=== PATIENT | male | born 1980 | race Caucasian/White ===

== ENCOUNTER 2016-12-26 00:21 | Inpatient (IN) | payer SELFPAY ==
[2016-12-26] VITALS (7 sets, daily range): BP systolic 101–166; BP diastolic 59–97; PULSE 65–80; RESP 15–21; TEMP 96.3–98.6; O2SAT 93–99
[~2016-12-26] VITALS: Ht 177.8 cm; Wt 101.1 kg
[~2016-12-26 00:21] MED LIST: METH40TA9 PO
[2016-12-26] MEDS ORDERED: SODIUM CHLOR 0.9% 1000 ML INJ 1,000 ML IV ONE ×2 (02:38→05:30)
[2016-12-26] MEDS ORDERED: SODIUM CHLORIDE 0.9% FLUSH 10 ML FLUSH IVF PRN ×2 (02:45→06:30)
[2016-12-26 03:20] LABS: BACTERIA, URINE RARE /hpf; BLOOD, URINE NEG (NEG); COMMENT (UR) CULT NOT INDICATED; CULTURE IF INDICATED CULT NOT INDICATED; GLUCOSE,URINE NEG (NEG); HYALINE CAST, URINE 2 /lpf (RARE); KETONE, URINE 150 mg/dL (NEG); MUCUS URINE MANY /lpf (OCC); NITRITE,URINE NEG (NEG); SQUAMOUS EPITHELIAL CELL URINE 19 /hpf (0-5); URINE COLOR YELLOW (YELLW/STRAW)
--- NOTE | 2016-12-26 03:45 | RADRPT ---
EXAM DATE/TIME: 12/26/2016 03:18 [place] COMPARISON: No previous studies available for comparison. INDICATIONS : Dark urine. Evaluate kidney obstruction. ORAL CONTRAST: No oral contrast ingested. RADIATION DOSE: 8.54 CTDIvol (mGy) MEDICAL HISTORY : None SURGICAL HISTORY : Inguinal hernia repair. ENCOUNTER: Initial ACUITY: 1 day PAIN SCALE: 0/10 LOCATION: abdomen TECHNIQUE: Volumetric scanning of the abdomen and pelvis was performed. Using automated exposure control and ad justment of the mA and/or kV according to patient size, radiation dose was kept as low as reasonably achievable to obtain optimal diagnostic quality images. DICOM format image data is available electro nically for review and comparison. FINDINGS: LOWER LUNGS: The visualized lower lungs are clear. LIVER: Homogeneous density without lesion. There is no dilation of the biliary tree. No calcified gallston es. SPLEEN: Normal size without lesion. PANCREAS: Within normal limits. KIDNEYS: Normal in size and shape. There is no mass, stone, or hydronephrosis. ADRENAL GLANDS: Within normal limits. VASCULAR: There is no aortic aneurysm. BOWEL/MESENTERY: The stomach, small bowel, and colon demonstrate no acute abnormality. There is no free intraperitone al air or fluid. A moderate amount of stool seen throughout normal caliber colon. ABDOMINAL WALL: Within normal limits. RETROPERITONEUM: There is no lymphadenopathy. BLADDER: No wall thickening or mass. REPRODUCTIVE: Within normal limits. INGUINAL: Prior left angle hernia repair utilizing mesh. No recurrent inguinal hernia seen. MUSCULOSKELETAL: A right hip prosthesis obscures some of the pelvis. CONCLUSION: 1. Constipation. 2. Prior left inguinal hernia repair. Red Lacy Jr., MD on December 26, 2016 at 3:41 Board Certified Radiologist. This report was verified electronically.
[2016-12-26 03:54] LABS: BASOPHIL # 0.1 TH/MM3 (0-0.2); BASOPHIL % 0.6 % (0.0-2.0); EOSINOPHIL # 0.2 TH/MM3 (0-0.4); EOSINOPHIL % 1.6 % (0.0-4.0); HEMATOCRIT 41.7 % (39.0-51.0); HEMO FLAGS DIFF FINAL; LYMPH % 28.9 % (9.0-44.0); LYMPHOCYTE # 2.8 TH/MM3 (1.0-4.8); MEAN CELL VOLUME 83.5 FL (80.0-100.0); MEAN CORPUSCULAR HEMOGLOBIN 28.7 PG (27.0-34.0); MEAN CORPUSCULAR HGB CONC 34.3 % (32.0-36.0); MONO % 6.8 % (0.0-8.0); NEUT % 62.1 % (16.0-70.0); PLATELET COUNT 268 TH/MM3 (150-450); RED BLOOD COUNT 4.99 MIL/MM3 (4.50-5.90); RED CELL DISTRIBUTION WIDTH 13.2 % (11.6-17.2); WHITE BLOOD COUNT 9.6 TH/MM3 (4.0-11.0)
[2016-12-26 04:28] LABS: ALKALINE PHOSPHATASE 90 U/L (45-117); ALT (GPT) 223 U/L (12-78); TOTAL BILIRUBIN ADULT 0.3 MG/DL (0.2-1.0)
[2016-12-26 04:34] LABS: ANION GAP 5 MEQ/L (5-15); AST (GOT) 983 U/L (15-37); BICARBONATE 29.2 MEQ/L (21.0-32.0); BLOOD UREA NITROGEN 14 MG/DL (7-18); CHLORIDE 104 MEQ/L (98-107); GLOMERULAR FILTRATION RATE 81 ML/MIN (>89); POTASSIUM 4.3 MEQ/L (3.5-5.1); SODIUM (NA) 138 MEQ/L (136-145)
[2016-12-26 06:06] LABS: CREATINE KINASE 104270 U/L (39-308)
[2016-12-26 06:09] LABS: CKMB 176.5 NG/ML (0.5-3.6)
[2016-12-26] MEDS ORDERED: SODIUM CHLORIDE 0.9% FLUSH 10 ML FLUSH IV FLUSH PRN (06:15)
[2016-12-26] MEDS ORDERED: NALOXONE HCL 0.4 MG/ML AMP IV PUSH PRN (06:15)
--- NOTE | 2016-12-26 06:27 | PD ---
HPI Chief Complaint: Complaint Time Seen by Provider: 02:38 Travel History International Travel<30 days: No Contact w/Intl Traveler<30days: No Traveled to known affect area: No History of Present Illness HPI 36-year-old male presents to the emergency department by private transportation the care of his friend for evaluation of new onset of noting dark urine. Patient had heavy workout today which is atypical for him as he is typically sedentary. Patient decided to get into shape and aggressively worked out. Patient does not report any muscle pain. Patient's had no abdominal pain. No chest pain no shortness of breath no nausea no vomiting. Patient states he's actually felt poorly since he had hip replacement 3 years ago and does not feel significantly worse that he felt over time. Patient states she's been trying to get disability. Patient does take methadone on a chronic basis. Patient does not take any acetaminophen. Patient's had no heavy use of nonsteroidal anti-inflammatories or aspirin. Patient's had good urine output. Patient has not noticed any gross blood in his urine no dysuria frequency urgency or flank pain. Patient is also not noticed any new bruising or joint pain or swelling. [facility] Past Medical History Narrative Medical Hip surgery 3; prior substance use; methadone use; no alcohol use; nursing notes reviewed Diminished Hearing: No Musculoskeletal: Yes (STAPH INFECTION TO RIGHT HIP AREA) Sleep Apnea: No Past Surgical History Abdominal Surgery: Yes (HERNIA REPAIR) Neurologic Surgery: No Other Surgery: Yes (RIGHT HIP REPLACEMENT 08/2014) Social History Alcohol Use: No (PT DENIES AT THIS TIME) Tobacco Use: Yes (VAPOR CIGS) Substance Use: Yes (PT DENIES AT THIS TIME. (Herion IV USE LAST USED 12/24/2004) ) Allergies-Medications (Allergen,Severity, Reaction): Coded Allergies: No Known Allergies (Verified , 12/26/16) Reported Meds & Prescriptions Reported Meds & Active Scripts Active Reported Methadone Hcl (Methadone HCl) 40 Mg Tab 110 Mg PO DAILY Review of Systems Except as stated in HPI: all other systems reviewed are Neg General / Constitutional: No: Fever, Chills Eyes: No: Visual changes HENT: No: Headaches, Neck Pain Cardiovascular: No: Chest Pain or Discomfort, Palpitations, Diaphoresis Respiratory: No: Shortness of Breath Gastrointestinal: No: Nausea, Vomiting, Abdominal Pain Genitourinary: Positive: Hematuria (Dark Urine), No: Dysuria, Flank Pain Musculoskeletal: No: Myalgias, Arthralgias, Cramping, Edema, Pain Skin: No Rash Neurologic: No: Weakness Psychiatric: No: Anxiety Hematologic/Lymphatic: No: Lymph Node Enlargement Physical Exam Narrative GENERAL: Well-developed well-nourished male in no acute distress no respiratory distress SKIN: Warm and dry. HEAD: Normocephalic. EYES: No scleral icterus. No injection or drainage. NECK: Supple, trachea midline. No JVD or lymphadenopathy. CARDIOVASCULAR: Regular rate and rhythm without murmurs, gallops, or rubs. RESPIRATORY: Breath sounds equal bilaterally. No accessory muscle use. GASTROINTESTINAL: Abdomen soft, non-tender, nondistended. MUSCULOSKELETAL: No cyanosis, or edema. BACK: Nontender without obvious deformity. No CVA tenderness. Data Data Last Documented VS Vital Signs Date Time Temp Pulse Resp B/P (MAP) Pulse Ox O2 Delivery O2 Flow Rate FiO2 12/26/16 00:22 98.3 80 15 166/97 (120) 98 Room Air Orders Orders Complete Blood Count With Diff (12/26/16 02:38) Comprehensive Metabolic Panel (12/26/16 02:38) Urinalysis - C+S If Indicated (12/26/16 02:38) Ct Abd/Pel W/O Iv Contrast (12/26/16 02:38) Ecg Monitoring (12/26/16 02:38) Iv Access Insert/Monitor (12/26/16 02:38) Sodium Chloride 0.9% Flush (Ns Flush) (12/26/16 02:45) Sodium Chlor 0.9% 1000 Ml Inj (Ns 1000 M (12/26/16 02:38) Creatine Kinase (Cpk) (12/26/16 03:38) Lipase (12/26/16 05:14) Hepatitis Profile (12/26/16 05:14) Sodium Chlor 0.9% 1000 Ml Inj (Ns 1000 M (12/26/16 05:30) CKMB (12/26/16 03:38) CKMB% (12/26/16 03:38) Admit To Inpatient (12/26/16 ) Vital Signs (Adult) Q4H (12/26/16 06:14) Activity Oob With Assistance (12/26/16 06:14) [employer] Blind Mechanic / Telemetry .CONTINUOUS (12/26/16 06:14) Diet Heart Healthy (12/26/16 Breakfast) Sodium Chlor 0.9% 1000 Ml Inj (Ns 1000 M (12/26/16 06:14) Sodium Chloride 0.9% Flush (Ns Flush) (12/26/16 06:15) Sodium Chloride 0.9% Flush (Ns Flush) (12/26/16 09:00) Basic Metabolic Panel (Bmp) (12/27/16 06:00) Complete Blood Count With Diff (12/27/16 06:00) Case Management Consult (12/26/16 06:14) Naloxone Inj (Narcan Inj) (12/26/16 06:15) Inpatient Certification (12/26/16 ) Electrocardiogram (12/26/16 ) Creatine Kinase (Cpk) (12/26/16 06:17) Troponin I (12/26/16 06:17) Admit Order (Ed Use Only) (12/26/16 ) ^ Saline Lock (12/26/16 06:18) Resp Oxygen Ulysses C Titrat 1-4 L (12/26/16 ) Notify Dr: Other (12/26/16 06:18) Sodium Chloride 0.9% Flush (Ns Flush) (12/26/16 09:00) Sodium Chloride 0.9% Flush (Ns Flush) (12/26/16 06:30) Labs Laboratory Tests Test 12/26/16 03:14 12/26/16 03:38 12/26/16 05:35 Urine Color YELLOW Urine Turbidity HAZY Urine pH 7.0 Urine Specific [place] 1.037 Urine Protein 100 mg/dL Urine Glucose (UA) NEG mg/dL Urine Ketones 150 mg/dL Urine Occult Blood NEG Urine Nitrite NEG Urine Bilirubin NEG Urine Urobilinogen 2.0 MG/DL Urine Leukocyte Esterase TRACE Urine RBC 2 /hpf Urine WBC 5 /hpf Urine Squamous Epithelial Cells 19 /hpf Urine Bacteria RARE /hpf Urine Hyaline Casts 2 /lpf Urine Mucus MANY /lpf Microscopic Urinalysis Comment CULT NOT INDICATED White Blood Count 9.6 TH/MM3 Red Blood Count 4.99 MIL/MM3 Hemoglobin 14.3 GM/DL Hematocrit 41.7 % Mean Corpuscular Volume 83.5 FL Mean Corpuscular Hemoglobin 28.7 PG Mean Corpuscular Hemoglobin Concent 34.3 % Red Cell Distribution Width 13.2 % Platelet Count 268 TH/MM3 Mean Platelet Volume 8.4 FL Neutrophils (%) (Auto) 62.1 % Lymphocytes (%) (Auto) 28.9 % Monocytes (%) (Auto) 6.8 % Eosinophils (%) (Auto) 1.6 % Basophils (%) (Auto) 0.6 % Neutrophils # (Auto) 6.0 TH/MM3 Lymphocytes # (Auto) 2.8 TH/MM3 Monocytes # (Auto) 0.7 TH/MM3 Eosinophils # (Auto) 0.2 TH/MM3 Basophils # (Auto) 0.1 TH/MM3 CBC Comment DIFF FINAL Differential Comment Blood Urea Nitrogen 14 MG/DL Creatinine 1.05 MG/DL Random Glucose 111 MG/DL Total Protein 7.2 GM/DL Albumin 3.7 GM/DL Calcium Level 8.7 MG/DL Alkaline Phosphatase 90 U/L Aspartate Amino Transf (AST/SGOT) 983 U/L Alanine Aminotransferase (ALT/SGPT) 223 U/L Total Bilirubin 0.3 MG/DL Sodium Level 138 MEQ/L Potassium Level 4.3 MEQ/L Chloride Level 104 MEQ/L Carbon Dioxide Level 29.2 MEQ/L Anion Gap 5 MEQ/L Estimat Glomerular Filtration Rate 81 ML/MIN Total Creatine Kinase 414030 U/L Creatine Kinase MB 176.5 NG/ML Creatine Kinase MB % 0.2 % Lipase 71 U/L [facility] Medical Decision Making Medical Screen Exam Complete: Yes Emergency Medical Condition: Yes Medical Record Reviewed: Yes Interpretation(s) CBC & BMP Diagram 12/26/16 03:38 Total Protein 7.2, Albumin 3.7, Calcium Level 8.7, Alkaline Phosphatase 90, Aspartate Amino Transf (AST/SGOT) 983 H, Alanine Aminotransferase (ALT/SGPT) 223 H, Total Bilirubin 0.3 Vital Signs Date Time Temp Pulse Resp B/P (MAP) Pulse Ox O2 Delivery O2 Flow Rate FiO2 12/26/16 00:22 98.3 80 15 166/97 (120) 98 Room Air CK: 104,270, elevated MB% 0.2%, not elevated EKG normal sinus rhythm rate [address] segment elevation injury pattern or ectopy noted Differential Diagnosis Dark urine/hematuria, UTI, renal colic, rhabdomyolysis, renal failure, hepatitis , electrolyte disturbance, dehydration Narrative Course IV access obtained specimens collected and sent for resulting patient administered 1 L normal saline CBC is automated differential values normal range Urinalysis elevated specific gravity 1.037 however no red blood cells no occult blood also no urobilinogen CT abdomen and pelvis with contrast reveals no acute abnormality Metabolic panel renal function is normal BUN and creatinine are normal range however transaminase anemia is noted with elevated AST and ALT CK remains pending Patient given additional liter of normal saline waiting for CK results; lab has been called and has been informed that CK is requiring dilution At 6:20 AM CK total is from a resulted as 104, 270 this is markedly elevated with elevated CK-MB but MB percent is 0.2% not elevated Patient's case has been discussed with on-call [place] for admission for rhabdomyolysis as well as transaminasemia EKG ordered, repeat CK ordered, troponin I ordered. Patient is informed that he will be admitted for ongoing evaluation of pending CK and liver function tests. Physician Communication Physician Communication discussed with Dr Leonardo --admit Diagnosis Primary Impression: Rhabdomyolysis Additional Impression: Transaminasemia Admitting Information Admitting Physician Requests: Admit Selma Bell MD Dec 26, 2016 06:26
[2016-12-26] MEDS ORDERED: METH40TA PO (06:57)
[2016-12-26] MEDS: SODIUM CHLOR 0.9% 1000 ML INJ 1,000 ML IV SCH ×5 (07:14→22:14)
[2016-12-26 08:36] LABS: CKMB 118.8 NG/ML (0.5-3.6)
[2016-12-26] MEDS: SODIUM CHLORIDE 0.9% FLUSH 10 ML FLUSH IV FLUSH SCH ×2 (09:00→21:19)
[2016-12-26] MEDS ORDERED: SODIUM CHLORIDE 0.9% FLUSH 10 ML FLUSH IV FLUSH SCH (09:00)
--- NOTE | 2016-12-26 11:09 | HHI.HP ---
HPI Service [facility] Primary Care Physician No Primary Care Physician Admission Diagnosis rhabdomyolysis; transaminasemia Diagnoses: Chief Complaint: Brown urine Travel History International Travel<30 Days: No Contact w/Intl Traveler <30 Da: No Traveled to Known Affected Are: No History of Present Illness The patient is a 36-year-old male who is methadone dependent who is presenting to the hospital with brown urine. The patient says that yesterday he and his brother decided to come back to the gym. He said he has not been working out for the past 3 months. He says he performs some stretches and mostly chest exercises. He said that at one point his left arm felt like he ripped a muscle but he continued to work out despite that. He said that he felt worn out from overexerting himself. He said that once he got home he didn't feel right. He said he had a bowel movement and then started to feel really cold. He then started to feel hot. He said he had diffuse muscle aches so he took an ibuprofen 800 mg. He said that before he went to bed he went to urinate and noticed that his urine was brown in color. He decided to come to the hospital for further evaluation at that point. He denied any pain upon urination. He denied any fevers. He says he did take of the now approaching shake the day prior to working out. He also mentions that he has been taking testosterone supplements in the form of "[place] Test" and "DIM". He says as he is chronically on methadone his testosterone level is very low and he has been taking supplements for the past few months. He also says that he endorses exertional headaches. He stopped going to the gym 3 months ago because of those exertion headaches. He said that he is chronically constipated and has been straining a lot. He said he was straining on the day he came to the hospital. Review of Systems Except as stated in HPI: all other systems reviewed are Neg Past Family Social History Past Medical History Right hip staph infection secondary to an ingrown toenail requiring hip replacement Allergies: Coded Allergies: No Known Allergies (Verified , 12/26/16) Active Ordered Medications Current Medications Medications (Trade) Dose Ordered Sig/Telly Route Start Time Stop Time Status Last Admin Sodium Chloride 1,000 ml @ 250 mls/hr Q4H IV 12/26/16 06:14 12/26/16 07:14 (NS Flush) 2 ml UNSCH PRN IV FLUSH 12/26/16 06:15 (NS Flush) 2 ml BID IV FLUSH 12/26/16 09:00 (Narcan Inj) 0.4 mg UNSCH PRN IV PUSH 12/26/16 06:15 (Dolophine) 120 mg DAILY PO 12/26/16 10:45 UNV Family History CAD Social History The patient is chronically on methadone at the methadone clinic. He denies smoking or drinking or illicit drug use. Physical Exam Vital Signs Vital Signs Date Time Temp Pulse Resp B/P (MAP) Pulse Ox O2 Delivery O2 Flow Rate FiO2 12/26/16 07:57 97.8 71 16 136/71 (92) 98 12/26/16 06:55 71 16 119/77 (91) 99 Room Air 12/26/16 06:32 98 12/26/16 00:22 98.3 80 15 166/97 (120) 98 Room Air Physical Exam GENERAL: This is a well-nourished, well-developed patient, in no apparent distress. SKIN: No rashes, ecchymoses or lesions. Cool and dry. HEAD: Atraumatic. Normocephalic. No temporal or scalp tenderness. EYES: Pupils equal round and reactive. Extraocular motions intact. No scleral icterus. No injection or drainage. ENT: Nose without bleeding, purulent drainage or septal hematoma. Throat without erythema, tonsillar hypertrophy or exudate. Uvula midline. Airway patent. NECK: Trachea midline. No JVD or lymphadenopathy. Supple, nontender, no meningeal signs. CARDIOVASCULAR: Regular rate and rhythm without murmurs, gallops, or rubs. RESPIRATORY: Clear to auscultation. Breath sounds equal bilaterally. No wheezes , rales, or rhonchi. GASTROINTESTINAL: Abdomen soft, non-tender, nondistended. No hepato-splenomegaly , or palpable masses. No guarding. MUSCULOSKELETAL: Extremities without clubbing, cyanosis, or edema. No joint tenderness, effusion, or edema noted. NEUROLOGICAL: Awake and alert. Cranial nerves II through XII intact. Motor and sensory grossly within normal limits. Five out of 5 muscle strength in all muscle groups. Normal speech. PSYCH: Mood and affect appropriate. Laboratory Laboratory Tests Test 12/26/16 03:14 12/26/16 03:38 12/26/16 05:35 12/26/16 06:20 Urine Color YELLOW Urine Turbidity HAZY Urine pH 7.0 Urine Specific [place] 1.037 Urine Protein 100 Urine Glucose (UA) NEG Urine Ketones 150 Urine Occult Blood NEG Urine Nitrite NEG Urine Bilirubin NEG Urine Urobilinogen 2.0 Urine Leukocyte Esterase TRACE Urine RBC 2 Urine WBC 5 Urine Squamous Epithelial Cells 19 Urine Bacteria RARE Urine Hyaline Casts 2 Urine Mucus MANY Microscopic Urinalysis Comment CULT NOT INDICATED White Blood Count 9.6 Red Blood Count 4.99 Hemoglobin 14.3 Hematocrit 41.7 Mean Corpuscular Volume 83.5 Mean Corpuscular Hemoglobin 28.7 Mean Corpuscular Hemoglobin Concent 34.3 Red Cell Distribution Width 13.2 Platelet Count 268 Mean Platelet Volume 8.4 Neutrophils (%) (Auto) 62.1 Lymphocytes (%) (Auto) 28.9 Monocytes (%) (Auto) 6.8 Eosinophils (%) (Auto) 1.6 Basophils (%) (Auto) 0.6 Neutrophils # (Auto) 6.0 Lymphocytes # (Auto) 2.8 Monocytes # (Auto) 0.7 Eosinophils # (Auto) 0.2 Basophils # (Auto) 0.1 CBC Comment DIFF FINAL Differential Comment Blood Urea Nitrogen 14 Creatinine 1.05 Random Glucose 111 Total Protein 7.2 Albumin 3.7 Calcium Level 8.7 Alkaline Phosphatase 90 Aspartate Amino Transf (AST/SGOT) 983 Alanine Aminotransferase (ALT/SGPT) 223 Total Bilirubin 0.3 Sodium Level 138 Potassium Level 4.3 Chloride Level 104 Carbon Dioxide Level 29.2 Anion Gap 5 Estimat Glomerular Filtration Rate 81 Total Creatine Kinase [id number] Creatine Kinase MB 176.5 118.8 Creatine Kinase MB % 0.2 0.1 Lipase 71 Troponin I 0.02 Result Diagram: 12/26/1633712/26/16337 Imaging Last Impressions Abdomen/Pelvis CT 12/26/16237 Signed Impressions: Service Date/Time: December 03:18 - CONCLUSION: 1. Constipation. 2. Prior left inguinal hernia repair. MD Jacob Eastman Jr. VTE Risk Assessment Caprini VTE Risk Assessment: No/Low Risk (score <= 1) Caprini Risk Assessment Model Point Value = 1 Point Value = 2 Point Value = 3 Point Value = 5 Age 41-60 Minor surgery BMI > 25 kg/m2 Swollen legs Varicose veins or History of unexplained or recurrent spontaneous Oral contraceptives or hormone replacement Sepsis (< 1 month) Serious lung disease, including pneumonia (< 1 month) Abnormal pulmonary function Acute myocardial infarction Congestive heart failure (< 1 month) History of inflammatory bowel disease Medical patient at bed rest Age 61-74 Arthroscopic surgery Major open surgery (> 45 min) Laparoscopic surgery (> 45 min) Malignancy Confined to bed (> 72 hours) Immobilizing plaster cast Central venous access Age >= 75 History of VTE Family history of VTE Factor V Leiden Prothrombin [id number] Lupus anticoagulant Anticardiolipin antibodies Elevated serum homocysteine Heparin-induced thrombocytopenia Other congenital or acquired thrombophilia Stroke (< 1 month) Elective arthroplasty Hip, pelvis, or leg fracture Acute spinal cord injury (< 1 month) Prophylaxis Regimen Total Risk Factor Score Risk Level Prophylaxis Regimen 0-1 Low Early ambulation 2 Moderate Order ONE of the following: *Sequential Compression Device (SCD) *Heparin 5000 units SQ BID 3-4 Higher Order ONE of the following medications: *Heparin 5000 units SQ TID *Enoxaparin/Lovenox 40 mg SQ daily (WT < 150 kg, CrCl > 30 mL/min) *Enoxaparin/Lovenox 30 mg SQ daily (WT < 150 kg, CrCl > 10-29 mL/min) *Enoxaparin/Lovenox 30 mg SQ BID (WT < 150 kg, CrCl > 30 mL/min) AND/OR *Sequential Compression Device (SCD) 5 or more Highest Order ONE of the following medications: *Heparin 5000 units SQ TID (Preferred with Epidurals) *Enoxaparin/Lovenox 40 mg SQ daily (WT < 150 kg, CrCl > 30 mL/min) *Enoxaparin/Lovenox 30 mg SQ daily (WT < 150 kg, CrCl > 10-29 mL/min) *Enoxaparin/Lovenox 30 mg SQ BID (WT < 150 kg, CrCl > 30 mL/min) AND *Sequential Compression Device (SCD) Assessment and Plan Assessment and Plan Rhabdomyolysis CPK level was significantly elevated at over 104,000. The patient did overexert himself at the gym on the day of admission. He has also been taking testosterone supplements and protein shakes. He was started on aggressive IV fluid hydration. - Continue normal saline at 250 ml/hour. - Follow CPK level. - Monitor electrolytes and renal function. Acute hepatitis Possibly secondary to rhabdo. The patient denies any history of hepatitis. CT of the abdomen unremarkable for hepatic process. - Trend LFTs. - IV fluids. - Check hepatitis profile. - liver US if no improvement. Chronic methadone use The patient goes to the methadone clinic on a daily basis for chronic pain. - Continue methadone regimen. PPx: Ambulation Code Status Full Discussed Condition With Pt, nurse Physician Certification 2 Midnight Certification Type: Admission for Inpatient Services Order for Inpatient Services The services are ordered in accordance with Medicare regulations or non- Medicare payer requirements, as applicable. In the case of services not specified as inpatient-only, they are appropriately provided as inpatient services in accordance with the 2-midnight benchmark. Estimated LOS (days): 2 days is the estimated time the patient will need to remain in the hospital, assuming treatment plan goals are met and no additional complications. Post-Hospital Plan: Home Jose Luis Crocker DO Dec 26, 2016 10:46
[2016-12-26] MEDS ORDERED: POLYETHYLENE GLYCOL 17 GM PKG PO ONE (11:30)
[2016-12-26] MEDS: DOCUSATE SODIUM 100 MG CAP PO SCH ×2 (11:52→21:19)
[2016-12-26] MEDS: METHADONE HCL 10 MG TAB PO SCH (11:54)
[2016-12-26] MEDS: SENNOSIDES 8.6 MG TAB PO SCH (16:16)
--- NOTE | 2016-12-26 17:08 | EKG ---
Date Performed: 12/26/2016 Time Performed: 06:46:22 PTAGE: 36 years EKG: Sinus rhythm NON-SPECIFIC ST/T WAVE CHANGES PREVIOUS TRACING : 12/13/2016 11.31 Compared to prior tracing no significant change DOCTOR: Jalen Trent Interpretating Date/Time 12/26/2016 17:06:55
[2016-12-27] VITALS (7 sets, daily range): BP systolic 114–138; BP diastolic 73–83; PULSE 59–85; RESP 16–18; TEMP 96.3–97.8; O2SAT 93–100
[2016-12-27] MEDS: SODIUM CHLOR 0.9% 1000 ML INJ 1,000 ML IV SCH ×6 (01:48→22:14)
[2016-12-27 07:17] LABS: BICARBONATE 27.6 MEQ/L (21.0-32.0); POTASSIUM 4.2 MEQ/L (3.5-5.1)
[2016-12-27] MEDS: METHADONE HCL 10 MG TAB PO SCH (08:24)
[2016-12-27] MEDS: DOCUSATE SODIUM 100 MG CAP PO SCH ×2 (08:24→20:15)
[2016-12-27] MEDS: SENNOSIDES 8.6 MG TAB PO SCH (08:24)
[2016-12-27 08:25] LABS: INDIRECT BILIRUBIN 0.3 MG/DL (0.0-0.8); TOTAL BILIRUBIN ADULT 0.4 MG/DL (0.2-1.0)
[2016-12-27] MEDS: SODIUM CHLORIDE 0.9% FLUSH 10 ML FLUSH IV FLUSH SCH ×2 (08:32→20:15)
[2016-12-27 08:49] LABS: CKMB 37.6 NG/ML (0.5-3.6)
--- NOTE | 2016-12-27 11:19 | HHI.PR ---
Subjective Remarks The patient said that he had a headache earlier that is now improved. He said it felt like a migraine. His family was at the bedside. Their questions were answered. The patient wanted his telemetry off. He says the stool softeners have been working. He had no other acute complaints. Discussed with nursing. Objective Vitals Vital Signs Date Time Temp Pulse Resp B/P (MAP) Pulse Ox O2 Delivery O2 Flow Rate FiO2 12/27/16 07:11 97.8 79 16 138/82 (100) 99 12/27/16 04:41 97.6 79 17 130/73 (92) 97 12/27/16 00:55 96.3 85 18 132/83 (99) 100 12/26/16 19:45 96.3 79 21 120/79 (93) 97 12/26/16 16:00 98.6 65 18 101/59 (73) 93 I/O 12/26/16 12/26/16 12/26/16 12/27/16 12/27/16 12/27/16 07:00 15:00 23:00 07:00 15:00 23:00 Intake Total 480 ml 480 ml 1829 ml 1349 ml Output Total 400 ml Balance 80 ml 480 ml 1829 ml 1349 ml Intake Oral 480 ml 480 ml 480 ml IV Total 1349 ml 1349 ml Output Urine Total 400 ml # Voids 2 3 # Bowel Movements 0 0 Result Diagram: 12/26/16 0338 12/27/16 0613 Imaging Last Impressions Abdomen/Pelvis CT 12/26/16 0238 Signed Impressions: Service Date/Time: December 03:18 - CONCLUSION: 1. Constipation. 2. Prior left inguinal hernia repair. Red Lacy Jr., MD Objective Remarks GENERAL: This is a well-nourished, well-developed patient, in no apparent distress. SKIN: No rashes, ecchymoses or lesions. Cool and dry. HEAD: Atraumatic. Normocephalic. No temporal or scalp tenderness. EYES: Pupils equal round and reactive. Extraocular motions intact. No scleral icterus. No injection or drainage. ENT: Nose without bleeding, purulent drainage or septal hematoma. Throat without erythema, tonsillar hypertrophy or exudate. Uvula midline. Airway patent. NECK: Trachea midline. No JVD or lymphadenopathy. Supple, nontender, no meningeal signs. CARDIOVASCULAR: Regular rate and rhythm without murmurs, gallops, or rubs. RESPIRATORY: Clear to auscultation. Breath sounds equal bilaterally. No wheezes , rales, or rhonchi. GASTROINTESTINAL: Abdomen soft, non-tender, nondistended. No hepato-splenomegaly , or palpable masses. No guarding. MUSCULOSKELETAL: Extremities without clubbing, cyanosis, or edema. No joint tenderness, effusion, or edema noted. NEUROLOGICAL: Awake and alert. Cranial nerves II through XII intact. Motor and sensory grossly within normal limits. Five out of 5 muscle strength in all muscle groups. Normal speech. PSYCH: Mood and affect appropriate. Medications and IVs Current Medications Medications (Trade) Dose Ordered Sig/Telly Route Start Time Stop Time Status Last Admin Sodium Chloride 1,000 ml @ 250 mls/hr Q4H IV 12/26/16 06:14 12/27/16 08:28 (NS Flush) 2 ml UNSCH PRN IV FLUSH 12/26/16 06:15 (NS Flush) 2 ml BID IV FLUSH 12/26/16 09:00 12/26/16 21:19 (Narcan Inj) 0.4 mg UNSCH PRN IV PUSH 12/26/16 06:15 (Dolophine) 120 mg DAILY PO 12/26/16 12:00 12/27/16 08:24 (Colace) 100 mg BID PO 12/26/16 10:45 12/27/16 08:24 (Senokot) 17.2 mg DAILY PO 12/26/16 12:00 12/27/16 08:24 A/P Assessment and Plan Rhabdomyolysis CPK level was significantly elevated at over 104,000. The patient did overexert himself at the gym on the day of admission. He has also been taking testosterone supplements and protein shakes. He was started on aggressive IV fluid hydration. CPK continues to improve. - Continue normal saline at 250 ml/hour. - Follow CPK level. - Monitor electrolytes and renal function. Acute hepatitis Likely secondary to rhabdo. The patient denies any history of hepatitis. CT of the abdomen unremarkable for hepatic process. - Trend LFTs. Improving. - IV fluids. - Check hepatitis profile. Chronic methadone use The patient goes to the methadone clinic on a daily basis for chronic pain. - Continue methadone regimen. PPx: Ambulation Discharge Planning Awaiting improvement in rhabdomyolysis Jose Luis Crocker DO Dec 27, 2016 11:19
[2016-12-27] MEDS ORDERED: IBUPROFEN 800 MG TAB PO ONE (12:30)
[2016-12-28] VITALS (7 sets, daily range): BP systolic 122–139; BP diastolic 73–82; PULSE 58–72; RESP 17–18; TEMP 95.7–97.4; O2SAT 94–99
[2016-12-28] MEDS: SODIUM CHLOR 0.9% 1000 ML INJ 1,000 ML IV SCH ×6 (02:14→22:44)
[2016-12-28 05:06] LABS: ALT (GPT) 207 U/L (12-78); ANION GAP 5 MEQ/L (5-15); AST (GOT) 519 U/L (15-37); BICARBONATE 30.5 MEQ/L (21.0-32.0); BLOOD UREA NITROGEN 9 MG/DL (7-18); CHLORIDE 108 MEQ/L (98-107); GLOMERULAR FILTRATION RATE 91 ML/MIN (>89); POTASSIUM 4.5 MEQ/L (3.5-5.1); SODIUM (NA) 143 MEQ/L (136-145)
[2016-12-28 05:31] LABS: ALKALINE PHOSPHATASE 79 U/L (45-117); TOTAL BILIRUBIN ADULT 0.3 MG/DL (0.2-1.0)
[2016-12-28 05:52] LABS: CREATINE KINASE 40828 U/L (39-308)
[2016-12-28 06:09] LABS: CKMB 26.7 NG/ML (0.5-3.6)
[2016-12-28] MEDS: SENNOSIDES 8.6 MG TAB PO SCH (08:06)
[2016-12-28] MEDS: METHADONE HCL 10 MG TAB PO SCH (08:06)
[2016-12-28] MEDS: DOCUSATE SODIUM 100 MG CAP PO SCH ×2 (08:06→21:27)
[2016-12-28] MEDS: IBUPROFEN 600 MG TAB PO PRN ×2 (08:07→21:28)
[2016-12-28] MEDS: SODIUM CHLORIDE 0.9% FLUSH 10 ML FLUSH IV FLUSH SCH ×2 (09:00→21:00)
--- NOTE | 2016-12-28 14:25 | HHI.PR ---
Subjective Remarks The patient said that his headache has resolved. He has been ambulating. He has no acute complaints. He does mention that he has some aches and pains on his left mid back. Objective Vitals Vital Signs Date Time Temp Pulse Resp B/P (MAP) Pulse Ox O2 Delivery O2 Flow Rate FiO2 12/28/16 12:00 95.7 69 18 122/77 (92) 94 12/28/16 08:00 97.4 58 17 127/82 (97) 95 12/28/16 04:00 96.9 61 18 125/74 (91) 97 12/28/16 00:00 97.4 64 18 132/78 (96) 99 12/27/16 20:00 97.3 70 16 114/76 (89) 98 12/27/16 16:00 97.8 59 16 136/79 (98) 99 I/O 12/27/16 12/27/16 12/27/16 12/28/16 12/28/16 12/28/16 07:00 15:00 23:00 07:00 15:00 23:00 Intake Total 1829 ml 3209 ml 2520 ml 120 ml Balance 1829 ml 3209 ml 2520 ml 120 ml Intake Oral 480 ml 960 ml 720 ml 120 ml IV Total 1349 ml 2249 ml 1800 ml # Voids 3 4 2 1 # Bowel Movements 0 1 0 Result Diagram: 12/26/16 0338 12/28/16 0350 Imaging Last Impressions Abdomen/Pelvis CT 12/26/16 0238 Signed Impressions: Service Date/Time: December 03:18 - CONCLUSION: 1. Constipation. 2. Prior left inguinal hernia repair. Red Lacy Jr., MD Objective Remarks GENERAL: This is a well-nourished, well-developed patient, in no apparent distress. SKIN: No rashes, ecchymoses or lesions. Cool and dry. HEAD: Atraumatic. Normocephalic. No temporal or scalp tenderness. EYES: Pupils equal round and reactive. Extraocular motions intact. No scleral icterus. No injection or drainage. ENT: Nose without bleeding, purulent drainage or septal hematoma. Throat without erythema, tonsillar hypertrophy or exudate. Uvula midline. Airway patent. NECK: Trachea midline. No JVD or lymphadenopathy. Supple, nontender, no meningeal signs. CARDIOVASCULAR: Regular rate and rhythm without murmurs, gallops, or rubs. RESPIRATORY: Clear to auscultation. Breath sounds equal bilaterally. No wheezes , rales, or rhonchi. GASTROINTESTINAL: Abdomen soft, non-tender, nondistended. No hepato-splenomegaly , or palpable masses. No guarding. MUSCULOSKELETAL: Extremities without clubbing, cyanosis, or edema. No joint tenderness, effusion, or edema noted. NEUROLOGICAL: Awake and alert. Cranial nerves II through XII intact. Motor and sensory grossly within normal limits. Five out of 5 muscle strength in all muscle groups. Normal speech. PSYCH: Mood and affect appropriate. Medications and IVs Current Medications Medications (Trade) Dose Ordered Sig/Telly Route Start Time Stop Time Status Last Admin Sodium Chloride 1,000 ml @ 250 mls/hr Q4H IV 12/26/16 06:14 12/28/16 06:41 (NS Flush) 2 ml UNSCH PRN IV FLUSH 12/26/16 06:15 (NS Flush) 2 ml BID IV FLUSH 12/26/16 09:00 12/27/16 20:15 (Narcan Inj) 0.4 mg UNSCH PRN IV PUSH 12/26/16 06:15 (Dolophine) 120 mg DAILY PO 12/26/16 12:00 12/28/16 08:06 (Colace) 100 mg BID PO 12/26/16 10:45 12/28/16 08:06 (Senokot) 17.2 mg DAILY PO 12/26/16 12:00 12/28/16 08:06 (Motrin) 600 mg Q8H PRN PO 12/27/16 20:00 12/28/16 08:07 A/P Assessment and Plan Rhabdomyolysis CPK level was significantly elevated at over 104,000. The patient did overexert himself at the gym on the day of admission. He has also been taking testosterone supplements and protein shakes. He was started on aggressive IV fluid hydration. CPK continues to improve. - Continue normal saline at 250 ml/hour. - Follow CPK level. - Monitor electrolytes and renal function. Acute hepatitis Likely secondary to rhabdo. The patient denies any history of hepatitis. CT of the abdomen unremarkable for hepatic process. Hepatitis profile negative. - Trend LFTs. Stable. - IV fluids. Chronic methadone use The patient goes to the methadone clinic on a daily basis for chronic pain. - Continue methadone regimen. PPx: Ambulation Discharge Planning Awaiting improvement in rhabdomyolysis Jose Luis Crocker DO Dec 28, 2016 14:25
[2016-12-29] VITALS (10 sets, daily range): BP systolic 122–150; BP diastolic 73–90; PULSE 58–71; RESP 16–18; TEMP 95.7–98; O2SAT 93–99
[2016-12-29] MEDS: SODIUM CHLOR 0.9% 1000 ML INJ 1,000 ML IV SCH ×6 (02:14→22:18)
[2016-12-29 07:20] LABS: INTERNATIONAL NORMALIZED RATIO 0.9 RATIO; PROTHROMBIN TIME - PATIENT 10.4 SEC (9.8-11.6)
[2016-12-29 07:37] LABS: INDIRECT BILIRUBIN 0.2 MG/DL (0.0-0.8); TOTAL BILIRUBIN ADULT 0.3 MG/DL (0.2-1.0)
[2016-12-29] MEDS: METHADONE HCL 10 MG TAB PO SCH (08:55)
[2016-12-29] MEDS: DOCUSATE SODIUM 100 MG CAP PO SCH ×2 (08:55→22:18)
[2016-12-29] MEDS: SENNOSIDES 8.6 MG TAB PO SCH (08:56)
[2016-12-29] MEDS: SODIUM CHLORIDE 0.9% FLUSH 10 ML FLUSH IV FLUSH SCH ×2 (08:57→22:16)
[2016-12-29 09:52] LABS: CKMB 12.1 NG/ML (0.5-3.6)
--- NOTE | 2016-12-29 10:28 | HHI.PR ---
Subjective Remarks The patient said that he does not have any aches or pains today. He was looking forward to going home soon. He is tolerating a diet. He is having bowel movements. Discussed with nursing. Objective Vitals Vital Signs Date Time Temp Pulse Resp B/P (MAP) Pulse Ox O2 Delivery O2 Flow Rate FiO2 12/29/16 08:00 97.3 58 16 150/90 (110) 94 12/29/16 04:24 96.9 60 18 139/78 (98) 96 12/29/16 04:01 66 12/29/16 00:02 66 12/29/16 00:00 98.0 71 18 126/73 (90) 96 12/28/16 20:02 97.2 67 18 139/73 (95) 97 12/28/16 20:02 72 12/28/16 16:00 97.4 63 17 132/82 (99) 96 12/28/16 12:00 95.7 69 18 122/77 (92) 94 I/O 12/28/16 12/28/16 12/28/16 12/29/16 12/29/16 12/29/16 07:00 15:00 23:00 07:00 15:00 23:00 Intake Total 120 ml 2520 ml 3960 ml 240 ml Balance 120 ml 2520 ml 3960 ml 240 ml Intake Oral 120 ml 720 ml 360 ml 240 ml IV Total 1800 ml 3600 ml # Voids 1 8 8 3 # Bowel Movements 0 1 0 Result Diagram: 12/26/16 0338 12/28/16 0350 Imaging Last Impressions Abdomen/Pelvis CT 12/26/16 0238 Signed Impressions: Service Date/Time: December 03:18 - CONCLUSION: 1. Constipation. 2. Prior left inguinal hernia repair. Red Lacy Jr., MD Objective Remarks GENERAL: This is a well-nourished, well-developed patient, in no apparent distress. SKIN: No rashes, ecchymoses or lesions. Cool and dry. HEAD: Atraumatic. Normocephalic. No temporal or scalp tenderness. EYES: Pupils equal round and reactive. Extraocular motions intact. No scleral icterus. No injection or drainage. ENT: Nose without bleeding, purulent drainage or septal hematoma. Throat without erythema, tonsillar hypertrophy or exudate. Uvula midline. Airway patent. NECK: Trachea midline. No JVD or lymphadenopathy. Supple, nontender, no meningeal signs. CARDIOVASCULAR: Regular rate and rhythm without murmurs, gallops, or rubs. RESPIRATORY: Clear to auscultation. Breath sounds equal bilaterally. No wheezes , rales, or rhonchi. GASTROINTESTINAL: Abdomen soft, non-tender, nondistended. No hepato-splenomegaly , or palpable masses. No guarding. MUSCULOSKELETAL: Extremities without clubbing, cyanosis, or edema. No joint tenderness, effusion, or edema noted. NEUROLOGICAL: Awake and alert. Cranial nerves II through XII intact. Motor and sensory grossly within normal limits. Five out of 5 muscle strength in all muscle groups. Normal speech. PSYCH: Mood and affect appropriate. Medications and IVs Current Medications Medications (Trade) Dose Ordered Sig/Telly Route Start Time Stop Time Status Last Admin Sodium Chloride 1,000 ml @ 250 mls/hr Q4H IV 12/26/16 06:14 12/29/16 08:59 (NS Flush) 2 ml UNSCH PRN IV FLUSH 12/26/16 06:15 (NS Flush) 2 ml BID IV FLUSH 12/26/16 09:00 12/27/16 20:15 (Narcan Inj) 0.4 mg UNSCH PRN IV PUSH 12/26/16 06:15 (Dolophine) 120 mg DAILY PO 12/26/16 12:00 12/29/16 08:55 (Colace) 100 mg BID PO 12/26/16 10:45 12/29/16 08:55 (Senokot) 17.2 mg DAILY PO 12/26/16 12:00 12/29/16 08:56 (Motrin) 600 mg Q8H PRN PO 12/27/16 20:00 12/28/16 21:28 A/P Assessment and Plan Rhabdomyolysis CPK level was significantly elevated at over 104,000. The patient did overexert himself at the gym on the day of admission. He has also been taking testosterone supplements and protein shakes. He was started on aggressive IV fluid hydration. CPK continues to improve. - Continue normal saline at 250 ml/hour. - Follow CPK level. - Monitor electrolytes and renal function. Acute hepatitis Likely secondary to rhabdo. The patient denies any history of hepatitis. CT of the abdomen unremarkable for hepatic process. Hepatitis profile negative. - Trend LFTs. Improving. - IV fluids. Chronic methadone use The patient goes to the methadone clinic on a daily basis for chronic pain. - Continue methadone regimen. PPx: Ambulation Discharge Planning Awaiting improvement in rhabdomyolysis. Hopefully discharge in the next 1-2 days. Jose Luis Crocker DO Dec 29, 2016 10:28
[2016-12-29] MEDS: IBUPROFEN 600 MG TAB PO PRN (14:09)
[2016-12-30] MEDS: SODIUM CHLOR 0.9% 1000 ML INJ 1,000 ML IV SCH ×3 (02:25→10:32)
[2016-12-30 07:42] VITALS: BP 129/85; PULSE 60; RESP 16; TEMP 97.4; O2SAT 97
[2016-12-30] MEDS: SENNOSIDES 8.6 MG TAB PO SCH (07:50)
[2016-12-30] MEDS: DOCUSATE SODIUM 100 MG CAP PO SCH (07:50)
[2016-12-30] MEDS: METHADONE HCL 10 MG TAB PO SCH (07:55)
[2016-12-30] MEDS: SODIUM CHLORIDE 0.9% FLUSH 10 ML FLUSH IV FLUSH SCH (08:32)
[2016-12-30 09:01] VITALS: RESP 16
[2016-12-30 09:01] LABS: ANION GAP 5 MEQ/L (5-15); AST (GOT) 209 U/L (15-37); BICARBONATE 29.9 MEQ/L (21.0-32.0); BLOOD UREA NITROGEN 11 MG/DL (7-18); CHLORIDE 104 MEQ/L (98-107); GLOMERULAR FILTRATION RATE 98 ML/MIN (>89); SODIUM (NA) 139 MEQ/L (136-145)
[2016-12-30 09:28] LABS: ALKALINE PHOSPHATASE 70 U/L (45-117); ALT (GPT) 167 U/L (12-78); CREATINE KINASE 8575 U/L (39-308); TOTAL BILIRUBIN ADULT 0.5 MG/DL (0.2-1.0)
[2016-12-30 09:48] LABS: CKMB 5.6 NG/ML (0.5-3.6)
[2016-12-30] MEDS ORDERED: SENN8.6T15 PO (10:36)
[2016-12-30] MEDS ORDERED: DOCU1CAP39 PO (10:36)
--- NOTE | 2016-12-30 10:37 | HHI.DCPOC ---
Discharge Care Plan Diagnosis: (1) Transaminasemia (2) Rhabdomyolysis Goals to Promote Your Health * To prevent worsening of your condition and complications * To maintain your health at the optimal level Directions to Meet Your Goals Take your medications as prescribed Follow your dietary instruction Follow activity as directed Keep your appointments as scheduled Take your immunizations and boosters as scheduled If your symptoms worsen call your PCP, if no PCP go to Urgent Care Center or Emergency Room Smoking is Dangerous to Your Health. Avoid second hand smoke Call the 24-hour hour crisis hotline for domestic abuse at Jose Luis Crocker DO Dec 30, 2016 10:37
--- NOTE | 2016-12-30 10:40 | HHI.DS ---
Discharge Summary Admission Date Dec 26, 2016 at 06:19 Discharge Date: Dec 30, 2016 Admitting Diagnosis rhabdomyolysis; transaminasemia (1) Rhabdomyolysis ICD Code: M62.82 - Rhabdomyolysis Diagnosis: Principal Status: Acute (2) Transaminasemia ICD Code: R74.0 - Nonspecific elevation of levels of transaminase and lactic acid dehydrogenase [LDH] Status: Acute Procedures None Brief History - From Admission The patient is a 36-year-old male who is methadone dependent who is presenting to the hospital with brown urine. The patient says that yesterday he and his brother decided to come back to the gym. He said he has not been working out for the past 3 months. He says he performs some stretches and mostly chest exercises. He said that at one point his left arm felt like he ripped a muscle but he continued to work out despite that. He said that he felt worn out from overexerting himself. He said that once he got home he didn't feel right. He said he had a bowel movement and then started to feel really cold. He then started to feel hot. He said he had diffuse muscle aches so he took an ibuprofen 800 mg. He said that before he went to bed he went to urinate and noticed that his urine was brown in color. He decided to come to the hospital for further evaluation at that point. He denied any pain upon urination. He denied any fevers. He says he did take of the now approaching shake the day prior to working out. He also mentions that he has been taking testosterone supplements in the form of "Howard Test" and "DIM". He says as he is chronically on methadone his testosterone level is very low and he has been taking supplements for the past few months. He also says that he endorses exertional headaches. He stopped going to the gym 3 months ago because of those exertion headaches. He said that he is chronically constipated and has been straining a lot. He said he was straining on the day he came to the hospital. CBC/BMP: 12/26/16 0338 12/30/16 0733 Significant Findings Laboratory Tests Test 12/28/16 03:50 12/29/16 05:35 12/30/16 07:33 Aspartate Amino Transf (AST/SGOT) 519 U/L (15-37) 342 U/L (15-37) 209 U/L (15-37) Alanine Aminotransferase (ALT/SGPT) 207 U/L (12-78) 177 U/L (12-78) 167 U/L (12-78) Chloride Level 108 MEQ/L (98-107) Total Creatine Kinase 96951 U/L (39-308) 65205 U/L (39-308) 8575 U/L (39-308) Creatine Kinase MB 26.7 NG/ML (0.5-3.6) 12.1 NG/ML (0.5-3.6) 5.6 NG/ML (0.5-3.6) Total Protein 6.2 GM/DL (6.4-8.2) Albumin 3.3 GM/DL (3.4-5.0) Imaging Last Impressions Abdomen/Pelvis CT 12/26/16 0238 Signed Impressions: Service Date/Time: December 03:18 - CONCLUSION: 1. Constipation. 2. Prior left inguinal hernia repair. Red Lacy Jr., MD PE at Discharge GENERAL: This is a well-nourished, well-developed patient, in no apparent distress. SKIN: No rashes, ecchymoses or lesions. Cool and dry. HEAD: Atraumatic. Normocephalic. No temporal or scalp tenderness. EYES: Pupils equal round and reactive. Extraocular motions intact. No scleral icterus. No injection or drainage. ENT: Nose without bleeding, purulent drainage or septal hematoma. Throat without erythema, tonsillar hypertrophy or exudate. Uvula midline. Airway patent. NECK: Trachea midline. No JVD or lymphadenopathy. Supple, nontender, no meningeal signs. CARDIOVASCULAR: Regular rate and rhythm without murmurs, gallops, or rubs. RESPIRATORY: Clear to auscultation. Breath sounds equal bilaterally. No wheezes , rales, or rhonchi. GASTROINTESTINAL: Abdomen soft, non-tender, nondistended. No hepato-splenomegaly , or palpable masses. No guarding. MUSCULOSKELETAL: Extremities without clubbing, cyanosis, or edema. No joint tenderness, effusion, or edema noted. NEUROLOGICAL: Awake and alert. Cranial nerves II through XII intact. Motor and sensory grossly within normal limits. Five out of 5 muscle strength in all muscle groups. Normal speech. PSYCH: Mood and affect appropriate. Pt update on day of discharge The pt was feeling well. He wanted to know what liquids to keep drinking. He said he had some mild kidney discomfort. He wanted to go home. Discussed with nursing. Hospital Course Rhabdomyolysis CPK level was significantly elevated at over 104,000. The patient did overexert himself at the gym on the day of admission. He has also been taking testosterone supplements and protein shakes. He was started on aggressive IV fluid hydration. He was continued on normal saline at 250 ml/hour. We followed his CPK level daily, along with electrolytes and renal function. CPK level was 8 ,575 on the day of discharge. He was asymptomatic and did not want to stay in the hospital any longer if at all possible. He will continue to drink plenty of liquids. He will have a repeat CMP in 3-5 days and will follow up with a primary care doctor. Acute hepatitis Likely secondary to rhabdomyolysis. The patient denies any history of hepatitis. CT of the abdomen unremarkable for hepatic process. Hepatitis profile negative. LFTs continued to improve. He will have a CMP repeated in 3-5 days. Chronic methadone use The patient goes to the methadone clinic on a daily basis for chronic pain. He was continued on his home methadone regimen. He was started on stool softeners for chronic constipation. Pt Condition on Discharge: Good Discharge Disposition: Discharge Home Discharge Time: > 30 minutes Discharge Instructions DIET: Follow Instructions for: As Tolerated, No Restrictions Activities you can perform: See Additionl Instruction Other Activity Instructions: Avoid strenous activities Follow up Referrals: PCP Follow-up - 1 Week New Orders: COMP MET PROF (CMP) - 3-5 Days CREATININE KINASE - 3-5 Days New Medications: Docusate Sodium (Dok) 100 Mg Cap 100 MG PO BID for Constipation, #60 CAP Sennosides (Senna Lax) 8.6 Mg Tab 17.2 MG PO DAILY for Constipation, #30 TAB Continued Medications: Methadone (Methadone) 40 Mg Tab 120 MG PO DAILY, TAB 0 Refills Jose Luis Crocker DO Dec 30, 2016 10:40
== END 2016-12-30 11:58 | disposition home or self-care (01) | DRG 557 ==
LOC: NEPC 00:21 → NEDA 06:19 → NEPFCDU 07:43 → N06B 18:53
PROVIDERS: ADMIT Hospitalist; ATTEND Hospitalist
DX: M62.82 Rhabdomyolysis (principal); K72.00 Acute and subacute hepatic failure without coma; F11.20 Opioid dependence, uncomplicated; D64.9 Anemia, unspecified; K59.09 Other constipation; G44.84 Primary exertional headache; G89.29 Other chronic pain; F17.200 Nicotine dependence, unspecified, uncomplicated; Z96.641 Presence of right artificial hip joint
CPT/HCPCS: 74176; 80048; 80053; 80074; 80076; 81001; 82550; 82552; 83690; 84484; 85025; 85610; 87641; 93005; 96360; 96361; J7030